=== PATIENT | female | born 1970 | race Caucasian/White ===

== ENCOUNTER → 2023-10-02 17:15 | Outpatient (REF) | payer OTHER, SELFPAY | LOC: HWWDC 17:15 | PROVIDERS: ATTENDING PHYSICIAN Family Medicine | DX: Z12.31 Encounter for screening mammogram for malignant neoplasm of breast (principal) | CPT/HCPCS: 77063; 77067 ==

== ENCOUNTER → 2024-10-26 18:29 | Outpatient (REF) | payer OTHER, SELFPAY | LOC: WDC 18:29 | PROVIDERS: ATTENDING PHYSICIAN Family Medicine | DX: Z12.31 Encounter for screening mammogram for malignant neoplasm of breast (principal) | CPT/HCPCS: 77063; 77067 ==